=== PATIENT | male | born 1960 | race American Indian/Alaskan Native ===

== ENCOUNTER 2019-04-20 12:21 | Emergency (ER) | payer MEDICARE ==
[2019-04-20] MEDS ORDERED: NACL 0.9% 500 ML 500 ML IV ONE ×2 (12:40→14:20)
[2019-04-20] MEDS ORDERED: ZOFRAN ODT ONE (12:42)
--- NOTE | 2019-04-20 12:47 | Emergency Department Report ---
ED Abdominal Pain HPI - General Chief Complaint: Abdominal Pain Stated Complaint: HYPOTENSION Time Seen by Provider: 04/20/19 12:33 Source: EMS Mode of arrival: Ambulatory Limitations: No Limitations - History of Present Illness Initial Comments: 58 yo male presents to ED with complaint of abdominal pain and vomiting. Patient has history of ESRD, states he began feeling tired and weak while at dialysis this morning. Patient finished dialysis, went home, reports he ate popcorn and drank a soda. Patient states he then fell asleep, was awakened by e pigastric abdominal pain. Patient reports one episode of vomiting at home with blood streaking in the vomitus. Patient reports history of bleeding gastric ulcer in the past. States pain is diffuse, however worse in the epigastric area. Denies blood in the stool. Denies diarrhea. MD Complaint: abdominal pain -: This afternoon Location: diffuse, epigastric Radiation: none Migration to: no migration Severity: moderate Severity scale (0 -10): 9 Quality: cramping Consistency: constant Improves With: nothing Worsens With: nothing Associated Symptoms: nausea, vomiting. denies: diarrhea, fever - Related Data Previous Rx's Medication Instructions Recorded Last Taken Type Mupirocin [Bactroban 2% Oint] 1 applic TP TID #1 tube 02/03/14 Unknown Rx Azithromycin [Zithromax Tri-Clark] 500 mg PO QDAY #3 tablet 04/20/19 Unknown Rx Dicyclomine [Bentyl] 20 mg PO QID PRN #20 tablet 04/20/19 Unknown Rx Ondansetron [Zofran Odt] 4 mg PO Q8HR PRN #20 tab.rapdis 04/20/19 Unknown Rx Allergies Allergy/AdvReac Type Severity Reaction Status Date / Time No Known Allergies Allergy Unverified 02/03/14 07:25 ED Review of Systems ROS: Stated complaint: HYPOTENSION Other details as noted in HPI Comment: All other systems reviewed and negative Constitutional: denies: chills, fever Gastrointestinal: abdominal pain, nausea, vomiting. denies: diarrhea, melena ED Past Medical Hx - Past Medical History Previous Medical History?: Yes Hx Hypertension: Yes Hx CVA: No Hx Heart Attack/AMI: No Hx Congestive Heart Failure: Yes Hx Diabetes: No Hx Deep Vein Thrombosis: No Hx Pulmonary Embolism: No Hx GERD: No Hx Liver Disease: No Hx Renal Disease: No (dialysis M_W_F) Hx of Cancer: No Hx Sickle Cell Disease: No Hx Arthritis: No Hx Headaches / Migraines: No Hx Seizures: No Hx Kidney Stones: No Hx Psychiatric Treatment: No Hx Asthma: No Hx COPD: Yes Hx Tuberculosis: No Hx Dementia: No Hx HIV: No Additional medical history: fistula right arm. moved to left arm - Surgical History Past Surgical History?: Yes Hx Coronary Stent: No Hx Open Heart Surgery: No Hx Pacemaker: Yes Hx Internal Defibrillator: No Hx Cholecystectomy: No Hx Appendectomy: No Hx Breast Surgery: No Additional Surgical History: shunt placement to right upper arm now left arm - Social History Smoking Status: Former Smoker Substance Use Type: None - Medications Home Medications: Home Medications Medication Instructions Recorded Confirmed Last Taken Type Mupirocin [Bactroban 2% Oint] 1 applic TP TID #1 tube 02/03/14 Unknown Rx Azithromycin [Zithromax Tri-Clark] 500 mg PO QDAY #3 tablet 04/20/19 Unknown Rx Dicyclomine [Bentyl] 20 mg PO QID PRN #20 tablet 04/20/19 Unknown Rx Ondansetron [Zofran Odt] 4 mg PO Q8HR PRN #20 tab.rapdis 04/20/19 Unknown Rx ED Physical Exam - General Limitations: No Limitations General appearance: alert, in no apparent distress - Head Head exam: Present: atraumatic, normocephalic - Eye Eye exam: Present: normal appearance - ENT ENT exam: Present: mucous membranes moist - Neck Neck exam: Present: normal inspection - Respiratory Respiratory exam: Present: normal lung sounds bilaterally. Absent: respiratory distress - Cardiovascular Cardiovascular Exam: Present: regular rate, normal rhythm - GI/Abdominal GI/Abdominal exam: Present: soft, distended (mildly), tenderness (mild diffuse tenderness, moderate epigastric tenderness) - Extremities Exam Extremities exam: Present: normal inspection - Neurological Exam Neurological exam: Present: alert, oriented X3 - Psychiatric Psychiatric exam: Present: normal affect, normal mood - Skin Skin exam: Present: warm, dry, intact, normal color ED Course Vital Signs 04/20/19 04/20/19 04/20/19 12:36 13:33 13:46 Temperature 98.2 F Pulse Rate 86 95 H 90 Respiratory 16 18 22 Rate Blood Pressure 98/57 Blood Pressure 98/57 102/60 85/59 [Right] O2 Sat by Pulse 85 100 99 Oximetry 04/20/19 04/20/19 04/20/19 13:49 14:13 14:31 Temperature Pulse Rate 90 Respiratory 22 18 18 Rate Blood Pressure Blood Pressure 106/70 [Right] O2 Sat by Pulse 98 100 Oximetry 04/20/19 04/20/19 15:03 17:06 Temperature Pulse Rate 103 H 106 H Respiratory 18 18 Rate Blood Pressure Blood Pressure 110/83 105/62 [Right] O2 Sat by Pulse 100 96 Oximetry - Reevaluation(s) Reevaluation #1: 04/20/19 16:04 Pt states he is feeling much better. Pain improved. No further emesis here in ED. ED Medical Decision Making - Lab Data Result diagrams: 04/20/19 Unknown 04/20/19 Unknown - Radiology Data Radiology results: report reviewed, image reviewed - Medical Decision Making 58-year-old male with nausea, vomiting, abdominal pain after eating popcorn and drinking soda. Patient actively vomiting upon ED arrival. His hypotensive at that time. Also received dialysis earlier today. 1 L bolus of IV fluids were given, patient responded adequately with systolic blood pressure improving to the 110s. Labs were unremarkable except for his known renal failure, and slight elevation in LFTs. WBCs were normal, patient afebrile. CT scan was done which was unremarkable for any intra-abdominal findings, however possible pulmonary infiltrates present. Following administration of 2 mg morphine and IV Zofran, patient is feeling much better. He feels okay to go home at this time. Will discharge home with prescription for Zofran and Bentyl. Due to possible pulmonary infiltrates on CT scan, prescription for azithromycin and also given. Return precautions given. Outpatient follow-up advised. - Differential Diagnosis perforated viscous, pancreatitis, gastroenteritis Critical care attestation.: If time is entered above; I have spent that time in minutes in the direct care of this critically ill patient, excluding procedure time. ED Disposition Clinical Impression: Abdominal pain, Nausea & vomiting Disposition: -01 TO HOME OR SELFCARE Is pt being admited?: No Condition: Stable Instructions: Abdominal Pain (ED), Pneumonia (ED) Prescriptions: Dicyclomine [Bentyl] 20 mg PO QID PRN #20 tablet PRN Reason: abdominal pain Azithromycin [Zithromax Tri-Clark] 500 mg PO QDAY #3 tablet Ondansetron [Zofran Odt] 4 mg PO Q8HR PRN #20 tab.rapdis PRN Reason: Vomiting Referrals: PRIMARY CARE, [Referring] - 3-5 Days Time of Disposition: 16:08
[2019-04-20] MEDS: ZOFRAN ODT PO ONE ×2 (13:00→13:18)
[2019-04-20 13:31] LABS: Basophils # (Auto) 0.1 K/mm3 (0.0-0.1); Basophils % (Auto) 0.8 % (0.0-1.8); Eosinophils % (Auto) 0.3 % (0.0-4.3); Hematocrit 35.8 % (35.5-45.6); Hemoglobin 11.7 gm/dl (11.8-15.2); Lymphocytes # (Auto) 0.8 K/mm3 (1.2-5.4); Lymphocytes % (Auto) 11.9 % (13.4-35.0); Mean Corpuscular HGB Conc 33 % (32-34); Mean Corpuscular Volume 110 fl (84-94); Monocytes # (Auto) 0.6 K/mm3 (0.0-0.8); Monocytes % (Auto) 10.2 % (0.0-7.3); Platelet Count 152 K/mm3 (140-440); Red Blood Count 3.24 M/mm3 (3.65-5.03); Red Cell Distribution Width 16.7 % (13.2-15.2)
[2019-04-20 13:37] LABS: INR 0.97 (0.87-1.13)
[2019-04-20 13:38] LABS: Partial Thromboplastin Time 33.3 Sec. (24.2-36.6)
--- NOTE | 2019-04-20 14:04 | XRay Report ---
Abdominal series: History: Abdominal pain and vomiting. Findings:. Marked cardiomegaly. Multiple airspace opacities right lower lobe with right pleural effusion. Decrease in volume of right lung compared to left. Stable pacemaker. No free intraperitoneal air. No bowel distention or wall thickening. Radiopaque density measuring 8 mm in diameter right upper quadrant would be an artifact or a calculus in the gallbladder. Impression: Findings right lower lobe probably related to unilateral pulmonary edema and less likely pneumonia. Radiopaque density right upper quadrant as detailed above. Impression:
[2019-04-20] MEDS ORDERED: MORPHINE IV ONE (14:20)
[2019-04-20 14:36] LABS: Albumin 4.3 g/dL (3.9-5); Calcium 9.9 mg/dL (8.4-10.2)
--- NOTE | 2019-04-20 15:40 | Cat Scan Report ---
CT scan of abdomen and pelvis without IV contrast: History: Abdominal pain. Findings: There is pleural-based circumscribed mass noted in the right lower chest probably round atelectasis with adjacent fibrosis and scarring with areas of acute infiltrate. There is also moderate pleural thickening. Ground glass opacities left lower lobe. Minimal right pleural effusion. Normal liver. Multiple calculi in gallbladder. No pericholecystic fluid. Normal pancreas. Normal spleen. Normal adrenal glands. Multiple innumerable cysts right and left kidney obscuring most of the kidney parenchyma. Largest cyst left kidney is 4 cm. Surgical clips is noted the medial aspect of the right kidney. No evidence of hydronephrosis. Contracted bladder cannot be evaluated. No free intraperitoneal fluid or air. No evidence of adenopathy. Normal appendix. No evidence of diverticulitis. Gaseous colon with stool in colon. No bowel distention. Bilateral small inguinal hernia. Impression: Multiple findings as detailed above in chest. Recommend CT scan of chest for further evaluation. Abdominal findings as detailed above.
[2019-04-20 17:08] VITALS: BP 105/62
== END 2019-04-20 16:36 | disposition home or self-care (01) ==
LOC: ED 12:21
DX: R11.2 Nausea with vomiting, unspecified (principal); R10.13 Epigastric pain; I11.0 Hypertensive heart disease with heart failure; I50.9 Heart failure, unspecified; J44.9 Chronic obstructive pulmonary disease, unspecified; Z87.891 Personal history of nicotine dependence
CPT/HCPCS: 36415; 74022; 74176; 80053; 83690; 85025; 85610; 85730; 96374; 99285; J2270; J7040; Q0162

== ENCOUNTER 2021-01-23 11:11 | Emergency (ER) | payer MEDICARE ==
--- NOTE | 2021-01-23 11:25 | Event Note ---
ED Screening Note ED Screening Note: ILL APPEARING MALE ESRD SP HD CO R ANKLE PAIN TACHY AND HYPOTENSIVE- PT REPORTS IS NORMAL FOR HIM SP HD This initial assessment/diagnostic orders/clinical plan/treatment(s) is/are subject to change based on patients health status, clinical progression and re- assessment by fellow clinical providers in the ED. Further treatment and workup at subsequent clinical providers discretion. Patient/guardian urged not to elope from the ED as their condition may be serious if not clinically assessed and managed. Initial orders include: XRAY RECHECK VS
--- NOTE | 2021-01-23 11:55 | XRay Report ---
Right ankle 3 views INDICATION: Right ankle pain following injury IMPRESSION: There is an obliquely oriented fracture identified involving the distal fibular metaphysi s with extension to the lateral malleolus. There is extensive soft tissue edema just beneath and medi al to the medial malleolus. Significant surrounding edema is also noted overlying the lateral malleol us. Signer Name: Alfred Chao MD Signed: 01/23/2021 11:50 AM Workstation Name: [id number]
--- NOTE | 2021-01-23 12:44 | Emergency Department Report ---
ED Lower Extremity HPI - General Chief Complaint: Extremity Injury, Lower Stated Complaint: RIGHT ANKLE PAIN Time Seen by Provider: 01/23/21 11:24 Source: patient Mode of arrival: Wheelchair Limitations: No Limitations, Other - History of Present Illness Initial Comments: CC: "I twisted my ankle on Thursday." HPI: This is a 60 yo male with hx of ESRD on HD MWF, COPD, chronic left foot wound, HTN, congestive heart failure who presents with right ankle pain since Thursday. Patient had a mechanical fall at home. While attempting to ambulate around the home, he twisted his ankle causing him to fall. He has had severe pain. He has been unable to bear weight on the right lower extremity. He completed hemodialysis this morning. Patient states that he has normally tachycardic with low blood pressure. He normally does not take medicine for hypertension. He states that his numbers are always off after dialysis. He states that his "reading" are not normal especially after dialysis. He states that he feels well. He states that he does not feel bad. He only came to the emergency department for severe pain at the anterior right ankle. Complaint: ankle injury -: Sudden, days(s) (2 days ago on Thursday) Injury: Ankle: Right Type of Injury: other (Twisting motion) Place: home Severity: severe Severity scale (0 -10): 10 Improves With: rest, other (Osito bandage applied by wound care nurse) Worsens With: weight bearing Context: fall Associated Symptoms: swelling Treatments Prior to Arrival: bandage (Osito bandage applied by patient's personal wound care nurse) - Related Data Previous Rx's Medication Instructions Recorded Last Taken Type Mupirocin [Bactroban 2% Oint] 1 applic TP TID #1 tube 02/03/14 Unknown Rx Azithromycin [Zithromax Tri-Clark] 500 mg PO QDAY #3 tablet 04/20/19 Unknown Rx Dicyclomine [Bentyl] 20 mg PO QID PRN #20 tablet 04/20/19 Unknown Rx Ondansetron [Zofran Odt] 4 mg PO Q8HR PRN #20 tab.rapdis 04/20/19 Unknown Rx Allergies Allergy/AdvReac Type Severity Reaction Status Date / Time lisinopril Allergy Angioedema Verified 01/23/21 11:23 ED Review of Systems ROS: Stated complaint: RIGHT ANKLE PAIN Other details as noted in HPI Comment: All other systems reviewed and negative Constitutional: denies: fever, malaise ENT: denies: ear pain Respiratory: denies: cough Gastrointestinal: denies: abdominal pain, nausea, vomiting ED Past Medical Hx - Past Medical History Previous Medical History?: Yes Hx Hypertension: Yes Hx CVA: No Hx Heart Attack/AMI: No Hx Congestive Heart Failure: Yes Hx Diabetes: No Hx Deep Vein Thrombosis: No Hx Pulmonary Embolism: No Hx GERD: No Hx Liver Disease: No Hx Renal Disease: No (dialysis M_W_F) Hx Sickle Cell Disease: No Hx Arthritis: No Hx Headaches / Migraines: No Hx Seizures: No Hx Kidney Stones: No Hx Psychiatric Treatment: No Hx Asthma: No Hx COPD: Yes Hx Tuberculosis: No Hx Dementia: No Hx HIV: No Additional medical history: fistula right arm. moved to left arm - Surgical History Hx Coronary Stent: No Hx Open Heart Surgery: No Hx Pacemaker: Yes Hx Internal Defibrillator: No Hx Cholecystectomy: No Hx Appendectomy: No Hx Breast Surgery: No Additional Surgical History: shunt placement to right upper arm now left arm - Social History Smoking Status: Never Smoker Substance Use Type: None - Medications Home Medications: Home Medications Medication Instructions Recorded Confirmed Last Taken Type Mupirocin [Bactroban 2% Oint] 1 applic TP TID #1 tube 02/03/14 Unknown Rx Azithromycin [Zithromax Tri-Clark] 500 mg PO QDAY #3 tablet 04/20/19 Unknown Rx Dicyclomine [Bentyl] 20 mg PO QID PRN #20 tablet 04/20/19 Unknown Rx Ondansetron [Zofran Odt] 4 mg PO Q8HR PRN #20 tab.rapdis 04/20/19 Unknown Rx ED Physical Exam - General Limitations: No Limitations General appearance: alert, in no apparent distress, other (Pleasant articulate talkative no acute distress nontoxic) - Head Head exam: Present: atraumatic, normocephalic - Eye Eye exam: Present: normal appearance - ENT ENT exam: Present: mucous membranes moist - Neck Neck exam: Present: normal inspection - Respiratory Respiratory exam: Present: normal lung sounds bilaterally. Absent: respiratory distress, wheezes, rales, rhonchi, stridor - Cardiovascular Cardiovascular Exam: Present: normal rhythm, tachycardia, normal heart sounds. Absent: systolic murmur, diastolic murmur, rubs, gallop - GI/Abdominal GI/Abdominal exam: Present: soft, normal bowel sounds. Absent: distended, tenderness, guarding, rebound - Rectal Rectal exam: Present: deferred - Expanded Lower Extremity Exam Right Hip exam: Present: normal inspection, full ROM Upper Leg exam: Present: normal inspection, full ROM Knee exam: Present: normal inspection, tenderness Lower Leg exam: Present: normal inspection, full ROM Ankle exam: Present: tenderness, swelling. Absent: abrasion, laceration, ecchymosis Foot/Toe exam: Present: swelling Neuro vascular tendon exam: Present: no vascular compromise - Neurological Exam Neurological exam: Present: alert, oriented X3 - Psychiatric Psychiatric exam: Present: normal affect, normal mood - Skin Skin exam: Present: warm, other (Left foot lower leg: Bandage in place clean dry intact) ED Course Vital Signs 01/23/21 01/23/21 01/23/21 11:27 14:20 14:25 Temperature 98.8 F 98.9 F Pulse Rate 135 H 140 H 61 Respiratory 20 22 22 Rate Blood Pressure 83/47 Blood Pressure 78/41 82/55 [Right] O2 Sat by Pulse 95 94 94 Oximetry ED Lower Extremity MDM - Radiology Data Radiology results: report reviewed, image reviewed Findings Reporting MD: Alfred Chao Dictation Time: January 23, 2021 10:50 Route Rider: Not available Netting Inspector Date: Right ankle 3 views INDICATION: Right ankle pain following injury IMPRESSION: There is an obliquely oriented fracture identified involving the distal fibular metaphysis with extension to the lateral malleolus. There is extensive soft tissue edema just beneath and medial to the medial malleolus. Significant surrounding edema is also noted overlying the lateral malleolus. Signer Name: Alfred Chao MD Signed: 01/23/2021 10:50 AM Workstation Name: [id number] - Medical Decision Making 1. Close distal fibula fracture: Minimal displacement, right lower extremity posterior splint was applied to the affected extremity under my supervision. After application the extremity was neurovascularly intact with acceptable alignment. Patient referred to orthopedic surgeon. 2. Tachycardia hypotension: Patient does not appear toxic, he states that he feels well. Patient does appear relatively well. He states that he has a history of hypertension. However I did want to pursue sepsis work-up. With history of end-stage renal disease he likely has autonomic dysfunction. However patient signed AMA form. He understands the risk of sepsis and sudden . He repeatedly declined further care in front of several nurse team members. Repeat heart rate 61 bpm Critical care attestation.: If time is entered above; I have spent that time in minutes in the direct care of this critically ill patient, excluding procedure time. ED Disposition Clinical Impression: Closed fibular fracture, Hypotension Disposition: [id number] LEFT AGAINST MED ADVICE Is pt being admited?: No Does the pt Need Aspirin: No Condition: Fair Referrals: VALDO NICK MD [Staff Physician] - 3-5 Days Forms: AMA Form
[2021-01-23 15:11] LABS: Hematocrit 31.8 % (35.5-45.6); Hemoglobin 10.3 gm/dl (11.8-15.2); Mean Corpuscular HGB Conc 32 % (32-34); Mean Corpuscular Volume 100 fl (84-94); Platelet Count 159 K/mm3 (140-440); Red Blood Count 3.18 M/mm3 (3.65-5.03); Red Cell Distribution Width 15.5 % (13.2-15.2)
[2021-01-23 15:32] LABS: Albumin 3.6 g/dL (3.9-5); Calcium 8.8 mg/dL (8.4-10.2)
[2021-01-23 15:44] VITALS: BP 90/69
--- NOTE | 2021-01-23 15:50 | XRay Report ---
Left leg-5 views INDICATION: infected ulcer. COMPARISON: None. IMPRESSION: Circumferential soft tissue swelling about the leg with no appreciable soft tissue wound , subcutaneous gas, or evidence of osteomyelitis. There is an area of osteonecrosis versus osteochon dral lesion involving the lateral femoral condyle. Normal alignment. No significant DJD. Signer Name: Jean-Paul Zelaya MD Signed: 01/23/2021 3:46 PM Workstation Name: [id number]
--- NOTE | 2021-01-23 15:51 | XRay Report ---
LEFT FOOT 3 VIEWS INDICATION / CLINICAL INFORMATION: Infected ulcer of left foot. COMPARISON: None available. FINDINGS: BONES and JOINT(S): No acute fracture or subluxation. No suspicious cortical destruction is identifie d. The bones are demineralized. No significant atherosclerosis. SOFT TISSUES: Moderate edema is noted dorsally along the foot. No soft tissue defect/ulceration is id entified. No other significant abnormality. ADDITIONAL FINDINGS: None. IMPRESSION: Left foot edema as above without visualization of a wound or other acute abnormality. Signer Name: Prince Danielson MD Signed: 01/23/2021 3:46 PM Workstation Name: [id number]
[2021-01-23 16:01] LABS: Total Cells Counted 100
[2021-01-23 16:02] LABS: RBC Morphology Normal
== END 2021-01-23 16:21 | disposition left against medical advice (07) ==
LOC: ED 11:11
DX: S82.401A Unspecified fracture of shaft of right fibula, initial encounter for closed fracture (principal); I95.9 Hypotension, unspecified; I11.0 Hypertensive heart disease with heart failure; I50.9 Heart failure, unspecified; J44.9 Chronic obstructive pulmonary disease, unspecified; Z88.8 Allergy status to other drugs, medicaments and biological substances; Z79.899 Other long term (current) drug therapy; Z98.890 Other specified postprocedural states; X50.1XXA Overexertion from prolonged static or awkward postures, initial encounter; Y93.89 Activity, other specified; Y92.009 Unspecified place in unspecified non-institutional (private) residence as the place of occurrence of the external cause; Y99.8 Other external cause status
CPT/HCPCS: 36415; 80053; 82140; 85007; 85025; 87040